=== PATIENT | female | born 1990 | race African-American/Black ===

== ENCOUNTER 2020-01-17 19:46 | Emergency (ER) | payer OTHER ==
[2020-01-17] MEDS ORDERED: diphenhydrAMINE INJ 50 MG/ML VIAL IVP STA (20:14)
[2020-01-17] MEDS ORDERED: SODIUM CHLORIDE 0.9% 1,000 ML IV STA (20:14)
[2020-01-17] MEDS ORDERED: METOCLOPRAMIDE 10 MG/2 ML VIAL IVP STA (20:14)
--- NOTE | 2020-01-17 20:15 | ED Physician Documentation ---
PD HPI HEADACHE - Stated complaint Stated Complaint: SON - Chief complaint Chief Complaint: Neuro - History obtained from History obtained from: Patient - History of Present Illness Timing - onset: Last night (29-year-old woman, G1 at 10 weeks gestation. She has a history of frequent migraines and was maintained on prophylactic amitriptyline for same until she became . This is her first migraine since she got . Started gradually last night and then got worse over the day today. It is a throbbing frontal headache not associated with nausea but she is light sensitive. It feels similar to prior headaches. There is no fever or neck stiffness.) Review of Systems Constitutional: denies: Fever, Chills Cardiac: reports: Reviewed and negative Respiratory: reports: Reviewed and negative PD PAST MEDICAL HISTORY - Past Medical History Past Medical History: Yes Neuro: Headaches, Migraines - Past Surgical History Past Surgical History: No - Present Medications Home Medications: Ambulatory Orders Medication Instructions Recorded Confirmed Metoclopramide [Reglan] 10 mg PO Q6H PRN #20 tablet 01/17/20 - Allergies Allergies/Adverse Reactions: Allergies Allergy/AdvReac Type Severity Reaction Status Date / Time No Known Drug Allergies Allergy Verified 01/17/20 19:51 - Social History Does the pt smoke?: No Smoking Status: Never smoker Does the pt drink ETOH?: No Does the pt have substance abuse?: No - Immunizations Immunizations are current?: Yes - POLST Patient has POLST: No PD ED PE NORMAL - Vitals Vital signs reviewed: Yes - General General: Alert and oriented X 3, No acute distress - HEENT HEENT: PERRL, EOMI - Neck Neck: Supple, no meningeal sign, No bony TTP - Abdomen Abdomen: Soft, Non tender - Female Female : Other (Bedside transabdominal ultrasound shows single live intrauterine with a heart rate of 170) - Back Back: No CVA TTP, No spinal TTP - Extremities Extremities: No edema, No calf tenderness / cord - Neuro Neuro: Alert and oriented X 3, Normal speech Results - Vitals Vitals: Vital Signs - 24 hr 01/17/20 19:51 Temperature 36.5 C Heart Rate 83 Respiratory 14 Rate Blood Pressure 119/73 O2 Saturation 98 Oxygen O2 Source Room air PD MEDICAL DECISION MAKING - ED course ED course: The headache is gradual in onset and similar to prior headaches. As such I doubt subarachnoid hemorrhage. There are no infectious symptoms such as fever or stiff neck to make me suspect meningitis. No carbon monoxide exposure by history. After the administration of IV Benadryl and Reglan she felt much better with headache that was minimal. Departure - Departure Disposition: 01 Home, Self Care Clinical Impression: Migraine headache Qualifiers: Migraine type: without aura Status migrainosus presence: with status migrainosus Intractability: not intractable Qualified Code(s): G43.001 - Migraine without aura, not intractable, with status migrainosus Condition: Good Record reviewed to determine appropriate education?: Yes Instructions: ED Headache Migraine Prescriptions: Metoclopramide [Reglan] 10 mg PO Q6H PRN #20 tablet PRN Reason: nausea or headache Comments: Call your doctor to arrange a follow-up appointment, make the next available appointment. In the interim, return anytime if worse or if new symptoms develop.
[2020-01-17 20:56] VITALS: BP 107/65
== END 2020-01-17 21:12 | disposition home or self-care (01) ==
LOC: ED 19:46
DX: O99.351 Diseases of the nervous system complicating pregnancy, first trimester (principal); G43.001 Migraine without aura, not intractable, with status migrainosus; Z3A.10 10 weeks gestation of pregnancy
CPT/HCPCS: 96361; 96374; 99283; 99284; J1200; J2765

== ENCOUNTER 2020-05-01 23:23 | Outpatient (CLI) | payer OTHER ==
[2020-05-01 23:40] VITALS: BP 130/67
[2020-05-02 00:07] LABS: BILIRUBIN,URINE NEGATIVE (NEGATIVE); CLARITY,URINE CLEAR (CLEAR); GLUCOSE, URINE (UA) NEGATIVE (NEGATIVE); KETONES,URINE (UA) NEGATIVE (NEGATIVE); LEUKOCYTE ESTERASE, URINE NEGATIVE (NEGATIVE); NITRITE,URINE NEGATIVE (NEGATIVE); OCCULT BLOOD,URINE NEGATIVE (NEGATIVE); PH,URINE 6.5 PH (5.0-7.5); PROTEIN,URINE NEGATIVE (NEGATIVE); UROBILINOGEN,URINE 0.2 (NORMAL) E.U./dL (NORMAL)
[2020-05-02 00:15] LABS: BACTERIA,URINE None Seen /HPF (None Seen); RBC,URINE None Seen /HPF (0-5); SQUAMOUS EPITHELIAL CELL,UR NONE SEEN (<= Few)
--- NOTE | 2020-05-02 00:27 | PROVIDER PROGRESS NOTE ---
- HPI Chief Complaint: Pain, non-labor Current : Current EDU 08/15/20 Gestation 24 Weeks and 6 Days 1 Para 0 Vital Signs Temperature 37.2 C 05/01/20 23:39 Heart Rate 101 H 05/01/20 23:39 Respiratory Rate 18 05/01/20 23:39 Blood Pressure 130/67 05/01/20 23:39 O2 Saturation 99 05/01/20 23:39 Temperature 37.2 C 05/01/20 23:39 Heart Rate 101 H 05/01/20 23:39 Respiratory Rate 18 05/01/20 23:39 Blood Pressure 130/67 05/01/20 23:39 O2 Saturation 99 05/01/20 23:39 - Plan Plan: S: Maribeth presents this evening with c/o strong ache to very low abdomen "I ca n't tell if it's my pelvis or just my low abdomen." She rates it as very strong, worsening since her prental appointment last week. She notes that the pain is worse when she is changing positions and is relieved when reclining. She denies otherwise intermittent/rhythmic nature. She did note some blood tinged discharge on wiping once today. She was encouraged to get a support belt in her a ppointment when she first described the discomfort. O: BP 130/67 HR 101 RR 18 SaO2: 99% Temp 37.2 Verbal and smiling when talking in bed, no acute distress FHTs appropriate for gestational age A: Round ligament vs symphysis pubis pain P: Discharge to home with information on labor s/s; as well as information about body mechanics and measures for relief Discussed option of physical therapy if pain persists
== END 2020-05-02 00:34 | disposition home or self-care (01) ==
LOC: WFO 23:23 → FBP 23:28 → WFO 05-02 00:34
PROVIDERS: ATTEND Advanced Practice Midwife
DX: O99.89 Other specified diseases and conditions complicating pregnancy, childbirth and the puerperium (principal); M79.18 Myalgia, other site; Z3A.24 24 weeks gestation of pregnancy
CPT/HCPCS: 81001; 87086; 99212

== ENCOUNTER 2020-05-03 22:11 | Outpatient (CLI) | payer OTHER ==
[2020-05-03 22:41] VITALS: BP 112/66
[2020-05-03 22:52] LABS: BILIRUBIN,URINE NEGATIVE (NEGATIVE); GLUCOSE, URINE (UA) NEGATIVE (NEGATIVE); KETONES,URINE (UA) NEGATIVE (NEGATIVE); LEUKOCYTE ESTERASE, URINE NEGATIVE (NEGATIVE); NITRITE,URINE NEGATIVE (NEGATIVE); OCCULT BLOOD,URINE NEGATIVE (NEGATIVE); PH,URINE 6.5 PH (5.0-7.5); PROTEIN,URINE NEGATIVE (NEGATIVE); UROBILINOGEN,URINE 0.2 (NORMAL) E.U./dL (NORMAL)
[2020-05-03 22:55] LABS: CLARITY,URINE CLEAR (CLEAR)
[2020-05-03 23:12] LABS: RUPTURE OF MEMBRANES PLUS NEGATIVE (NEGATIVE)
--- NOTE | 2020-05-04 08:01 | PROCEDURE REPORT ---
- HPI Diagnosis/Indication for NST: Other (Fluid leaking from vagina) Current EDU 08/15/20 Gestation 25 Weeks and 1 Days 1 Vital Signs Temperature 36.8 C 05/03/20 22:24 Heart Rate 89 05/03/20 22:24 Respiratory Rate 16 05/03/20 22:24 Blood Pressure 112/66 05/03/20 22:24 O2 Saturation 98 05/03/20 22:24 Temperature 36.8 C 05/03/20 22:24 Heart Rate 89 05/03/20 22:24 Respiratory Rate 16 05/03/20 22:24 Blood Pressure 112/66 05/03/20 22:24 O2 Saturation 98 05/03/20 22:24
--- NOTE | 2020-05-04 08:09 | PROVIDER PROGRESS NOTE ---
- HPI Chief Complaint: Leakage of vaginal fluid Current : Current EDU 08/15/20 Gestation 25 Weeks and 1 Days 1 Vital Signs Temperature 36.8 C 05/03/20 22:24 Heart Rate 89 05/03/20 22:24 Respiratory Rate 16 05/03/20 22:24 Blood Pressure 112/66 05/03/20 22:24 O2 Saturation 98 05/03/20 22:24 Temperature 36.8 C 05/03/20 22:24 Heart Rate 89 05/03/20 22:24 Respiratory Rate 16 05/03/20 22:24 Blood Pressure 112/66 05/03/20 22:24 O2 Saturation 98 05/03/20 22:24 - Plan Plan: 05/03/2020 at 2200 S: Maribeth presented to triage after experiencing moisture on her underwear after getting up to urinate. No further leaking. O: FHTs: 145-150 baseline with moderate variability, accels at least 10x10, no decels. No uterine contractions ROM+- neg UA- neg A: This 29yo at 25.1wks gestation presents with leaking fluid from vagina Not amniotic fluid. FHT reassuring P: Discharge to home with labor precautions
== END 2020-05-03 23:28 | disposition home or self-care (01) ==
LOC: WFO 22:11 → FBP 22:12 → WFO 23:28
PROVIDERS: ATTEND Advanced Practice Midwife
DX: O99.89 Other specified diseases and conditions complicating pregnancy, childbirth and the puerperium (principal); N89.8 Other specified noninflammatory disorders of vagina; Z3A.25 25 weeks gestation of pregnancy
CPT/HCPCS: 81001; 81003; 82731; 84112; 87086; 99213

== ENCOUNTER 2020-05-30 12:16 | Outpatient (CLI) | payer OTHER ==
[2020-05-30 12:44] LABS: HGB - HEMOGLOBIN 12.1 g/dL (12.0-16.0); MEAN CORPUSCULAR HEMOGLOBIN 29.1 pg (27.0-31.0); MEAN CORPUSCULAR HGB CONC 33.2 g/dL (32.0-36.0); MEAN CORPUSCULAR VOLUME 87.7 fL (81.0-99.0); MEAN PLATELET VOLUME 10.5 fL (7.9-10.8); RED BLOOD COUNT 4.16 10^6/uL (4.20-5.40); RED CELL DISTRIBUTION WIDTH 12.7 % (12.0-15.0)
[2020-05-30 12:59] LABS: ALBUMIN 3.2 g/dL (3.2-5.5); ALBUMIN/GLOBULIN RATIO 0.9 (1.0-2.2); BILIRUBIN,TOTAL 0.4 mg/dL (0.2-1.0); CALCIUM 9.1 mg/dL (8.5-10.3); CREATININE 0.7 mg/dL (0.4-1.0); TOTAL PROTEIN 6.9 g/dL (6.7-8.2); URIC ACID 4.7 mg/dL (2.6-7.2)
== END 2020-05-30 12:17 | disposition home or self-care (01) ==
LOC: LAB 12:16
PROVIDERS: ATTEND Nurse Practitioner Obstetrics & Gynecology
DX: G43.909 Migraine, unspecified, not intractable, without status migrainosus (principal)
CPT/HCPCS: 36415; 80053; 82570; 84156; 84550; 85027

== ENCOUNTER 2020-05-31 07:00 | Outpatient (CLI) | payer OTHER ==
[2020-05-31 18:56] LABS: CREATININE,URINE 92.4 mg/dL; PROTEIN/CREATININE RATIO,URINE 0.1 (<=0.2)
== END 2020-05-31 23:59 | disposition home or self-care (01) ==
LOC: LAB.R 07:00
PROVIDERS: ATTEND Nurse Practitioner Obstetrics & Gynecology
DX: G43.909 Migraine, unspecified, not intractable, without status migrainosus (principal)
CPT/HCPCS: 82570; 84156

== ENCOUNTER 2020-06-23 13:15 | Outpatient (CLI) | payer OTHER ==
[2020-06-23 13:28] VITALS: BP 117/70
--- NOTE | 2020-06-23 13:58 | PROCEDURE REPORT ---
- HPI Diagnosis/Indication for NST: Decreased movement Current EDU 08/15/20 Gestation 32 Weeks and 3 Days 1 Para 0 Vital Signs Temperature 36.6 C 06/23/20 13:27 Heart Rate 97 06/23/20 13:27 Respiratory Rate 16 06/23/20 13:27 Blood Pressure 117/70 06/23/20 13:27 O2 Saturation 98 06/23/20 13:27 Temperature 36.6 C 06/23/20 13:27 Heart Rate 97 06/23/20 13:27 Respiratory Rate 16 06/23/20 13:27 Blood Pressure 117/70 06/23/20 13:27 O2 Saturation 98 06/23/20 13:27 - NST Procedure NST Procedure Start Date 06/23/20 Start Time 13:22 Stop Time 13:50 Vibroacoustic Stimulation Used No Patient States Movement No: decreased - Results and Plan Plan: Maribeth presents today with decreased movement. She states she is feeling movements but they have been decreased throughout the day today. She denies VB, Lof, or contractions. She also reports intermittent mid-epigastric pain after eating. She has not tried anything for management. NST performed 06/23/2020 NST read 06/23/2020 NST reactive. FHR baseline 140s, moderate variability, + accels, no decels Advised small frequent meals and TUMS PRN. Has f/u appt Friday - keep appt or return sooner PRN. Reviewed kick counting and when to present. Pt released home with precautions. FINAL DIAGNOSIS Decreased movement - third trimester
== END 2020-06-23 14:05 | disposition home or self-care (01) ==
LOC: WFO 13:15 → FBP 13:17 → WFO 14:05
PROVIDERS: ATTEND Nurse Practitioner Obstetrics & Gynecology
DX: O36.8130 Decreased fetal movements, third trimester, not applicable or unspecified (principal); Z3A.32 32 weeks gestation of pregnancy
CPT/HCPCS: 59025

== ENCOUNTER 2020-06-28 12:04 | Outpatient (CLI) | payer OTHER ==
[2020-06-28 12:25] LABS: MEAN CORPUSCULAR HEMOGLOBIN 29.1 pg (27.0-31.0); MEAN CORPUSCULAR HGB CONC 34.1 g/dL (32.0-36.0); MEAN CORPUSCULAR VOLUME 85.4 fL (81.0-99.0); MEAN PLATELET VOLUME 10.6 fL (7.9-10.8); RED BLOOD COUNT 4.12 10^6/uL (4.20-5.40); RED CELL DISTRIBUTION WIDTH 12.3 % (12.0-15.0); WHITE BLOOD COUNT 7.6 x10^3/uL (4.8-10.8)
[2020-06-28 12:50] LABS: ALBUMIN 3.2 g/dL (3.2-5.5); ALBUMIN/GLOBULIN RATIO 0.8 (1.0-2.2); BILIRUBIN,TOTAL 0.4 mg/dL (0.2-1.0); CALCIUM 9.2 mg/dL (8.5-10.3); CREATININE 0.7 mg/dL (0.4-1.0); TOTAL PROTEIN 7.1 g/dL (6.7-8.2)
== END 2020-06-28 12:05 | disposition home or self-care (01) ==
LOC: LAB 12:04
PROVIDERS: ATTEND Nurse Practitioner Obstetrics & Gynecology
DX: G43.109 Migraine with aura, not intractable, without status migrainosus (principal)
CPT/HCPCS: 36415; 80053; 82570; 84156; 85027

== ENCOUNTER 2020-07-01 00:37 | Outpatient (CLI) | payer OTHER ==
[2020-07-01 01:04] VITALS: BP 113/73
[2020-07-01 01:50] LABS: BILIRUBIN,URINE NEGATIVE (NEGATIVE); GLUCOSE, URINE (UA) NEGATIVE (NEGATIVE); KETONES,URINE (UA) NEGATIVE (NEGATIVE); LEUKOCYTE ESTERASE, URINE NEGATIVE (NEGATIVE); NITRITE,URINE NEGATIVE (NEGATIVE); OCCULT BLOOD,URINE NEGATIVE (NEGATIVE); PROTEIN,URINE NEGATIVE (NEGATIVE); UROBILINOGEN,URINE 0.2 (NORMAL) E.U./dL (NORMAL)
[2020-07-01 01:51] LABS: CLARITY,URINE CLEAR (CLEAR)
[2020-07-01 01:59] LABS: BACTERIA,URINE None Seen /HPF (None Seen); RBC,URINE None Seen /HPF (0-5); SQUAMOUS EPITHELIAL CELL,UR RARE Squamous (<= Few)
--- NOTE | 2020-07-01 02:03 | PROCEDURE REPORT ---
- HPI Diagnosis/Indication for NST: Other (Abdominal pain) Current EDU 08/15/20 Gestation 33 Weeks and 4 Days 1 Para 0 Vital Signs Temperature 37.1 C 07/01/20 00:57 Heart Rate 101 H 07/01/20 00:57 Respiratory Rate 20 07/01/20 00:57 Blood Pressure 113/73 07/01/20 00:57 O2 Saturation 97 07/01/20 00:57 Temperature 37.1 C 07/01/20 01:00 Heart Rate 97 07/01/20 01:00 Respiratory Rate 18 07/01/20 01:00 Blood Pressure 113/73 07/01/20 01:00 O2 Saturation 97 07/01/20 01:00 - NST Procedure NST Procedure Start Time 13:22 Stop Time 13:50 - Results and Plan Findings/Impression: S: Maribeth is a 29yo at 33.4wks gestation who presents for new onset lower left abdominal pain. It started at 2000, and she felt it was possibly digestive discomfort. It was a constant aching. She took tums and miralax and went to sleep, and then was awoke at midnight by 10/10 pain. She then presented to L&D for evaluation. She currently reports her pain as improving at 5/10 She denies LOF/VB or sensation of contractions Endorses movement She reports having intercourse at 1700, and then leftover thanksgiving dinner after that No SON, RUQ pain, or blurred vision. O: Abdomen gravid, soft to palpation, mild tenderness noted with palpation to lower quadrant UA- collected and normal FFN- unable to collect r/t recent intercourse Affirm- collected, awaiting results Pt talkative for duration of evaluation without guarding or wincing noted FHTs 140s, moderate variability, accels 15x15, no decels Uterine irritability noted on toco A: 29yo at 33.4 wks gestation with LLQ abdominal pain No indications of early labor Discussed precautions for cholycystitis Discussed s/s preeclampsia, labor, and appendicitis FHT Cat I P: Discharge to home with labor precautions Return for routine care Will call if abnormal Affirm Return for worsening pain, or continued pain at 5/10 into tomorrow Refrain from intercourse until pain resides.
[2020-07-01 05:13] LABS: CANDIDA GROUP DNA NEGATIVE (NEGATIVE); CANDIDA KRUSEI DNA NEGATIVE (NEGATIVE); TRICHOMONAS VAGINALIS DNA NEGATIVE (NEGATIVE)
== END 2020-07-01 01:50 | disposition home or self-care (01) ==
LOC: WFO 00:37 → FBP 00:38 → WFO 01:50
PROVIDERS: ATTEND Advanced Practice Midwife
DX: O99.891 Other specified diseases and conditions complicating pregnancy (principal); Z3A.33 33 weeks gestation of pregnancy; R10.30 Lower abdominal pain, unspecified
CPT/HCPCS: 81001; 82731; 87086; 87661; 87801; 99213

== ENCOUNTER 2020-07-20 13:19 | Outpatient (CLI) | payer OTHER ==
--- NOTE | 2020-07-20 15:00 | Ultrasound Report ---
PROCEDURE: OB F/U or Repeat INDICATIONS: UTERINE SIZE/DATE DISCREPANCY OUTSIDE/PRIOR DATING DATA: Last menstrual period (LMP): 11/09/2019. LMP-based estimated date of delivery (ALVARADO): 08/15/2020. First dating scan (date and location): 04/28/2020. Estimated date of delivery (ALVARADO) from first dating scan: 08/12/2020. TECHNIQUE: Real-time scanning was performed of the fetus, with image documentation and biometric measurements. Endovaginal scanning: Not needed COMPARISON: None currently available FINDINGS: General: A single living intrauterine gestation is present. Presentation: Vertex Placenta: Placental position is right anterior, without previa. Amniotic fluid index: 18.2 cm, 76 percentile for gestational age. heart rate: 133 beats per minute. Maternal cervical canal: 3 cm long; normal length is 2.5 cm or more. biometrics: Biparietal diameter: 9.6 cm, 39 weeks 3 days Head circumference: 34.4 cm, 39 weeks 5 days Abdominal circumference: 34.7 cm, 38 weeks 4 days Femur length: 7.5 cm, 38 weeks 1 day Estimated gestational age from initial scan: 36 weeks 5 days. Composite gestational age from present scan: 39 weeks 0 days Estimated weight and percentile: 3578 g, at the 95th percentile. Measurement variability in biometric dating: +/- 10 days from 12-20 weeks gestation, +/- 2 weeks from 20-30 weeks gestation, +/- 3 weeks at 30 weeks gestation or more. Other: Not applicable. IMPRESSION: Current estimated gestational age from growth parameters today is 39 weeks 0 days +/- 3 weeks, and the prior estimated gestational age from 04/28/2020 is 36 weeks 5 days, +/- 3 weeks. [facility] estimated weight is on the threshold of macrosomia. No anomaly is seen. Reviewed by: Joseph Feliciano MD on 07/20/2020 2:59 PM PST Approved by: Joseph Feliciano MD on 07/20/2020 2:59 PM PST Station ID: [id number]
== END 2020-07-20 13:20 | disposition home or self-care (01) ==
LOC: DI 13:19
PROVIDERS: ATTEND Nurse Practitioner Obstetrics & Gynecology
DX: O26.843 Uterine size-date discrepancy, third trimester (principal); Z3A.39 39 weeks gestation of pregnancy

== ENCOUNTER 2020-07-26 08:00 | Outpatient (CLI) | payer OTHER | END 2020-07-26 23:59 | disposition home or self-care (01) | LOC: LAB.N 08:00 | PROVIDERS: ATTEND Advanced Practice Midwife | DX: Z34.90 Encounter for supervision of normal pregnancy, unspecified, unspecified trimester (principal); Z36.85 Encounter for antenatal screening for Streptococcus B | CPT/HCPCS: 87797 ==

== ENCOUNTER 2020-07-30 21:40 | Outpatient (CLI) | payer OTHER ==
[2020-07-30 22:13] VITALS: BP 112/69
[2020-07-30 23:19] LABS: RUPTURE OF MEMBRANES PLUS NEGATIVE (NEGATIVE)
--- NOTE | 2020-07-31 18:09 | PROVIDER PROGRESS NOTE ---
- HPI Chief Complaint: Leakage of vaginal fluid Current : Current EDU 08/15/20 Gestation 37 Weeks and 5 Days 1 Para 0 Vital Signs Temperature 36.9 C 07/30/20 21:56 Heart Rate 95 07/30/20 21:56 Respiratory Rate 07/30/20 21:56 Blood Pressure 112/69 07/30/20 21:56 O2 Saturation 98 07/30/20 21:56 Temperature 36.9 C 07/30/20 22:13 Heart Rate 95 07/30/20 22:13 Respiratory Rate 07/30/20 22:13 Blood Pressure 112/69 07/30/20 22:13 O2 Saturation 98 07/30/20 22:13 - Procedures OB Procedure Performed: NST NST Procedure: NST Procedure Start Time 13:22 Stop Time 13:50 - Plan Plan: S: Maribeth presented to L&D triage with complains of leaking fluid, eye pain, and blurred vision. O: FHT 150 baseline moderate variability Accels 15x15 no decels ROM+- negative BP wnl Irregular uterine activity A: 29yo at 37.5wks gestation presented for a term labor check Not ruptured Not in Labor NST- reactive No s/s preeclampsia P: Discharge home with labor precautions Continue with routine care Final Diagnosis: False Labor
== END 2020-07-30 23:30 | disposition home or self-care (01) ==
LOC: WFO 21:40 → FBP 21:41 → WFO 23:30
PROVIDERS: ATTEND Advanced Practice Midwife
DX: O99.891 Other specified diseases and conditions complicating pregnancy (principal); Z3A.37 37 weeks gestation of pregnancy; H57.10 Ocular pain, unspecified eye; H53.8 Other visual disturbances
CPT/HCPCS: 84112; 99213

== ENCOUNTER 2020-08-09 06:54 | Inpatient (IN) | payer OTHER ==
[2020-08-09] MEDS ORDERED: SODIUM CHLORIDE FLUSH 0.9% 10 ML SYRINGE IVP PRN (08:09)
[2020-08-09] MEDS ORDERED: ONDANSETRON 4 MG/2 ML VIAL IVP PRN (08:09)
[2020-08-09] MEDS ORDERED: OXYTOCIN/SODIUM CHLORIDE 500 ML IV PRN (08:09)
[2020-08-09] MEDS ORDERED: AMPICILLIN 2 GM in SODIUM CHLORIDE 0.9% MINIBAG 100 ML IV ONE (08:09)
[2020-08-09] MEDS ORDERED: CARBOPROST TROMETHAMINE 250 MCG/ML AMP IM PRN (08:09)
[2020-08-09] MEDS ORDERED: LIDOCAINE-MPF 1% 30 ML VIAL ID PRN (08:09)
[2020-08-09] MEDS ORDERED: OXYTOCIN 10 UNIT/ML VIAL IM PRN (08:09)
[2020-08-09] MEDS ORDERED: miSOPROStoL 200 MCG TABLET BC PRN (08:09)
[2020-08-09] MEDS ORDERED: TRANEXAMIC ACID 1,000 MG in SODIUM CHLORIDE 0.9% 100ML 100 ML IV PRN (08:09)
[2020-08-09] MEDS ORDERED: METHYLERGONOVINE 0.2 MG/ML VIAL IM PRN (08:09)
[2020-08-09] MEDS ORDERED: fentaNYL 100 MCG/2 ML VIAL IVP PRN (08:09)
--- NOTE | 2020-08-09 08:12 | HISTORY & PHYSICAL EXAMINATION ---
Admit History - Visit Reason Visit Reason: Other (Pre-Induction Cervical Ripening) - : 1 Parity: 0 Care: positive: [facility] [place] Risk/History: positive: Other (suspected LGA (efw 95%)) Complications This : positive: None Smoking Status: Never smoker - Mother's Labs Mother's Blood Type: positive: B Mother's RH: positive: Positive GBS: positive: Group B Strep Positive Rubella Status: positive: Immune - Other Maternal History Other Maternal History: -29yo at 39.0wks gestation who presents to Labor and Delivery for pre-induction cervical ripening -Reports movement -Denies ctx/VB/LOF - care with [facility] which has been adequate - Complications - US showing 95% efw -GBS positive -Dating Criteria * Initial U/S: 01/19/2020 @ 10.1wks c/w LMP dating- ALVARADO 08/15/2019 by LMP. -OB Hx *G1: current -Medications * vitamin-daily * Loratadine 10mg daily -Allergies *NKDA -Medical History *Non contributory -Surgical History *Corder teeth 2009 -Family History *MGM breast cancer -Social History *Non contributory - Labs, Immunizations, and Findings Initial U/S: 01/19/2020 @ 10.1wks c/w LMP dating- ALVARADO 08/15/2019 by LMP. B pos/Rubella immune VZV: NON-IMMUNE RPR nonreactive; HIV neg; GC/CT neg Genetic testing: Serum integrated screen - neg; CF neg FAS: 03/29/2020 WN with exception of suboptimal visualization of sacrum. Anterior placenta, no previa. 3VC. MITCHELL WNL. Size c/w dating. GROWTH: MITCHELL wnl. EFW 95%tile. Consider 39wk IOL. IOL for 08/09/2020 at 0730- confirmed with L&D. Glucola 127 Influenza: declined TDAP 05/30/2020 GBS at 37.1wks- neg HSV: denies in self and partner Breast pump Rx provided MOD: Anticipate ; Partner Mares; Its a BOY! Hira aguayo contraception: unsure - never used contraception in the past pap: 01/30/2020-WNL -SVE 1.5/60/-2 -Vertex by BSUS -EFW by lilli's 8.5# -FHTs per flowsheet -Assessment *29yo at 39.0 wks gestation who presents for IOL for suspected LGA baby *Cornejo Score 6- requires cervical ripening * Heart Tones- Category I -Plan *Admit to OBS(until active labor, SROM, AROM, epidural, or pitocin) *Cervical ripening with Misoprostol *Monitoring- Continuous *Covid swab per protocol *Comfort measures available- position changes, whirlpool tub, fentanyl, and epidural per maternal preference *Diet/Activity- per maternal preference *Anticipate Meds/Allgy - Home Medications Home Medications: Ambulatory Orders Medication Instructions Recorded Confirmed Metoclopramide [Reglan] 10 mg PO Q6H PRN #20 tablet 01/17/20 - Allergies Allergies/Adverse Reactions: Allergies Allergy/AdvReac Type Severity Reaction Status Date / Time No Known Drug Allergies Allergy Verified 01/17/20 19:51 Review of Systems - All Other Systems All Other Systems: reports: Reviewed and negative Physical - Abdominal Exam Contraction Frequency (min/apart): irregular Uterine Resting Tone: positive: Soft - Monitoring Heart Rate Baseline: 150 Strip Review: positive: Category I (moderate variability, accels 15x15, no decels) - Presentation Presentation: positive: Vertex - Vaginal Exam Membranes: positive: Membranes intact Plan for Labor - Plan For Labor I expect patient to be DC'd or transferred within 96 hours.: Yes
[2020-08-09] MEDS: miSOPROStoL 100 MCG TABLET BC SCH ×4 (08:33→23:09)
[2020-08-09 08:34] LABS: BASOPHILS % (AUTO) 0.2 %; EOSINOPHILS # (AUTO) 0.1 10^3/uL (0.0-0.7); EOSINOPHILS % (AUTO) 0.9 %; HGB - HEMOGLOBIN 11.4 g/dL (12.0-16.0); LYMPHOCYTES # (AUTO) 1.9 10^3/uL (1.5-3.5); LYMPHOCYTES % (AUTO) 28.6 %; MEAN CORPUSCULAR HEMOGLOBIN 28.7 pg (27.0-31.0); MEAN CORPUSCULAR HGB CONC 33.5 g/dL (32.0-36.0); MEAN CORPUSCULAR VOLUME 85.6 fL (81.0-99.0); MEAN PLATELET VOLUME 11.5 fL (7.9-10.8); MONOCYTES # (AUTO) 0.6 10^3/uL (0.0-1.0); MONOCYTES % (AUTO) 9.2 %; NEUTROPHILS % (AUTO) 59.6 %; PLT - PLATELET COUNT 186 10^3/uL (130-450); RED BLOOD COUNT 3.97 10^6/uL (4.20-5.40); WHITE BLOOD COUNT 6.7 x10^3/uL (4.8-10.8)
[2020-08-09 10:51] LABS: C. PNEUMONIAE- RESP PCR PANEL NOT DETECTED
[2020-08-09] MEDS: ACETAMINOPHEN 325 MG TABLET PO PRN (14:31)
[2020-08-09] MEDS ORDERED: diphenhydrAMINE 25 MG CAPSULE PO PRN (15:15)
[2020-08-09] MEDS ORDERED: ZOLPIDEM 5 MG TABLET PO PRN (15:16)
[2020-08-10] MEDS ORDERED: AMPICILLIN 2 GM in SODIUM CHLORIDE 0.9% MINIBAG 100 ML IV ONE (03:00)
[2020-08-10] MEDS: miSOPROStoL 100 MCG TABLET BC SCH ×2 (03:10→07:29)
[2020-08-10] MEDS: SODIUM CHLORIDE FLUSH 0.9% 10 ML SYRINGE IVP SCH (07:29)
[2020-08-10] MEDS: ACETAMINOPHEN 325 MG TABLET PO PRN ×2 (09:00→21:12)
--- NOTE | 2020-08-10 10:44 | PROVIDER PROGRESS NOTE ---
Labor Progress Note - Uterine Monitoring Uterine Monitoring Mode: positive: External toco Contraction Frequency (min/apart): 3-5 Contraction Intensity: positive: Mild to moderate Uterine Resting Tone: positive: Soft - Monitoring Monitor Mode: positive: External ultrasound Heart Rate Baseline: 145 Heart Rate Variability: positive: Moderate (6-25 bmp) Accelerations: positive: Present, 15x15 Decelerations: positive: None Strip Review: positive: Category I - Vaginal Exam Dilation (in cm): 2 Effacement (%): 70 Station: -2 Cervical Position: Anterior - Labor Progress Note Labor Progress Note/Additional Text: S: Maribeth is resting in bed. She reports feeling some of her contractions, but that they are mild. FOB is supportive at bedside. O: S/p Miso dose #6 at 0730 SVE: 2/70/-2/ant/soft with tight rim of external os Cook Balloon placed and inflated (uterine: 55mL; vamL) to patient tolerance A: 29yo at 39.1wks gestation IOL for suspected LGA Cornejo score 8- further ripening is indicated P: May monitor intermittently once 4 hours have passed from last miso dose Balloon ripening until spontaneously expelled or 12 hours have passed May eat/drink/ambulate to maternal preference May utilize comfort measures per maternal preference
--- NOTE | 2020-08-10 19:29 | PROVIDER PROGRESS NOTE ---
Labor Progress Note - Uterine Monitoring Uterine Monitoring Mode: positive: Palpation Contraction Frequency (min/apart): 3-6 Contraction Intensity: positive: Moderate Uterine Resting Tone: positive: Soft - Monitoring Monitor Mode: positive: Doppler/auscultation Heart Rate Baseline: 150s, accels audible, no audible decel - Labor Progress Note Labor Progress Note/Additional Text: S: Maribeth is ambulating in the room. supportive at bedside. Reports acceptance of discomfort with cervical balloon, and that she has tugged on it while up to the bathroom and it has not come out. O: FHTs via doppler Ctx per pt report and RN palpation A: 29yo at 39.1wks gestation IOL Balloon in place and appropriate until 2230 P: Intermittent monitoring Anticipate Comfort measures per maternal preference Will evaluate for pitocin administration and balloon removal PRN
[2020-08-10] MEDS: OXYTOCIN/SODIUM CHLORIDE 500 ML IV SCH (20:59)
[2020-08-10] MEDS: LACTATED RINGERS 1,000 ML IV SCH (21:02)
[2020-08-11] MEDS: AMPICILLIN 1 GM in SODIUM CHLORIDE 0.9% MINIBAG 100 ML IV SCH ×4 (01:14→21:01)
[2020-08-11] MEDS ORDERED: ROPIVACAINE 0.2% 0 MG/0 ML BAG EP ONE (03:23)
--- NOTE | 2020-08-11 09:32 | PROVIDER PROGRESS NOTE ---
Subjective - Subjective Subjective: Asked by CNM to become involved with assessing pt's induction of labor. Pt has a EFW >90%ile and normal amniotic fluid, is 39w and offered IOL for this and chose to do so. Has received 24h of misoprostol followed by cook catheter and pitocin as well. Internal os is unable to be reached. Patient is requesting consideration of discharge. Pt has had largely category 1 NST. Had some late decelerations last hs associated with a functional contraction pattern. Also had some lates associated with a period of tachysystole. Both resolved with position changes. Lilli reveals about a 8.75# fetus with copious amniotic fluid. SVE performed with hands under the SI joints and pt flat in bed. She had tissue at the internal side of the cervix that I was able to gently penetrate with a finger. Membranes swept with patient permission. SVE after sweep was 3/50/-3/posterior/ soft. d/w CNM, recommend continuation of IOL due to rare late decelerations. Cervix is ripe and further prostaglandin delivery likely with sweeping membranes. Recommend resume pitocin. Consider AROM earlier rather than later with the amount of amniotic fluid palpated on lilli. Anticipate . Objective - Vital Signs/Intake & Output Intake & Output: Intake & Output 08/08/20 08/09/20 08/10/20 08/11/20 23:59 23:59 23:59 23:59 Intake Total 800 500 Balance 800 500 - Lab Results Fish Bones: 08/09/20 08:27
[2020-08-11] MEDS: SODIUM CHLORIDE FLUSH 0.9% 10 ML SYRINGE IVP SCH ×2 (11:45→23:18)
[2020-08-11] MEDS: OXYTOCIN/SODIUM CHLORIDE 500 ML IV SCH ×3 (11:48→22:45)
[2020-08-11] MEDS: LACTATED RINGERS 1,000 ML IV SCH (11:49)
--- NOTE | 2020-08-11 16:26 | PROVIDER PROGRESS NOTE ---
Labor Progress Note - Uterine Monitoring Uterine Monitoring Mode: positive: External toco Contraction Frequency (min/apart): 2-4 Contraction Intensity: positive: Moderate Uterine Resting Tone: positive: Soft - Monitoring Monitor Mode: positive: External ultrasound Heart Rate Baseline: 145 Heart Rate Variability: positive: Moderate (6-25 bmp) Accelerations: positive: Present, 15x15 Decelerations: positive: None - Vaginal Exam Dilation (in cm): 4 Effacement (%): 60 Station: -3 Cervical Position: Midposition - Labor Progress Note Labor Progress Note/Additional Text: S: Ladailon in resting in bed. Reports that contractions have become more strong since pitocin was started. She is agreeable to AROM with SVE O: SVE 4/60/-3(head well applied)/soft/mid AROM for moderate clear fluid. Head remains well applied Pitocin running since approx 1200 A: 29yo at 39.2 wks IOL for suspected LGA Augementing with AROM and Pitocin P: Anticipate Comfort measures per maternal preference Continuous monitoring
[2020-08-11] MEDS ORDERED: ROPIVACAINE 0.2% 200 MG/100 ML BAG EP ONE (18:14)
[2020-08-11] MEDS ORDERED: NALBUPHINE 10 MG/ML AMP IVP PRN (18:44)
[2020-08-11] MEDS ORDERED: NALOXONE 0.4 MG/ML VIAL IVP PRN ×2 (18:44→20:52)
[2020-08-11] MEDS ORDERED: METOCLOPRAMIDE 10 MG/2 ML VIAL IVP PRN (18:44)
[2020-08-11] MEDS ORDERED: diphenhydrAMINE INJ 50 MG/ML VIAL IVP PRN ×2 (18:44→22:55)
[2020-08-11] MEDS ORDERED: ONDANSETRON 4 MG/2 ML VIAL IVP PRN (18:44)
--- NOTE | 2020-08-11 18:47 | ANESTHESIA ---
Pre-Anesthesia VS, & Labs - Diagnosis IUP, term labor - Procedure labor epidural placement Vital Signs: Temp Pulse Resp BP Pulse Ox 37.0 C 97 18 134/75 H 98 08/10/20 20:01 08/10/20 20:01 08/10/20 20:01 08/10/20 20:01 08/10/20 20:01 Height: 5 ft 7 in Weight (kg): 110.949 kg Body Mass Index: 38.2 BMI Classification: Obese - NPO Last Fluid Intake: t/o day Last Food Intake: t/o day - Is Patient ?: Yes - Lab Results Current Lab Results: Laboratory Tests 08/09/20 09:53: Blood Type B POSITIVE, Antibody Screen NEGATIVE 08/09/20 08:27: WBC 6.7, RBC 3.97 L, Hgb 11.4 L, Hct 34.0 L, MCV 85.6, MCH 28.7, MCHC 33.5, RDW 13.0, Plt Count 186, MPV 11.5 H, Neut # (Auto) 4.0, Lymph # (Auto) 1.9, Bea[place]gard # (Auto) 0.6, Eos # (Auto) 0.1, Baso # (Auto) 0.0, Absolute Nucleated RBC 0.00, Nucleated RBC % 0.0 08/09/20 08:23: Blood Type Recheck B POSITIVE Lab results reviewed: Yes Fish Bones: 08/09/20 08:27 Home Medications and Allergies Active Medications Acetaminophen (Acetaminophen 325 Mg Tablet) 650 mg PO Q6H PRN PRN Reason: Pain or Fever Last Admin: 08/10/20 21:12 Dose: 650 mg Documented by: Carboprost Tromethamine (Carboprost Tromethamine 250 Mcg/Ml Amp) 250 mcg IM Q15M PRN PRN Reason: Step 4: Hemorrhage protocol Stop: 08/14/20 08:10 Diphenhydramine HCl (Diphenhydramine 25 Mg Capsule) 25 mg PO QPM PRN PRN Reason: Insomnia Fentanyl (Fentanyl 100 Mcg/2 Ml Vial) 50 mcg IVP Q1H PRN PRN Reason: PAIN Oxytocin/Sodium Chloride (Pitocin/Sodium Chloride) 500 mls @ 999 mls/hr IV PRN PRN; Protocol PRN Reason: POST- HEMORR PREVENTION Stop: 08/14/20 08:10 Tranexamic Acid 1,000 mg/ (Sodium Chloride) 110 mls @ 660 mls/hr IV .ONCE PRN PRN Reason: EBL >1200mL and within 3hr Stop: 08/14/20 08:10 Ampicillin Sodium 1 gm/ Sodium (Chloride) 100 mls @ 200 mls/hr IV Q4H [facility] Last Admin: 08/11/20 17:06 Dose: 200 mls/hr Documented by: Lactated Ringer's (Lr) 1,000 mls @ 100 mls/hr IV .Q10H [facility] Last Admin: 08/11/20 11:49 Dose: 100 mls/hr Documented by: Oxytocin/Sodium Chloride (Pitocin/Sodium Chloride) 500 mls @ 2 mls/hr IV TITR [facility]; Protocol Last Titration: 08/11/20 14:35 Dose: 9 milliunit/min, 9 mls/hr Documented by: Lidocaine HCl (Lidocaine-Mpf 1% 30 Ml Vial) 30 ml ID .ONCE PRN PRN Reason: PERINEAL REPAIR Stop: 08/14/20 08:10 Methylergonovine Maleate (Methylergonovine 0.2 Mg/Ml Vial) 0.2 mg IM .ONCE PRN PRN Reason: Step 2: Hemorrhage protocol Stop: 08/14/20 08:10 Misoprostol (Misoprostol 200 Mcg Tablet) 800 mcg BC .ONCE PRN PRN Reason: Step 3: Hemorrhage protocol Stop: 08/14/20 08:10 Ondansetron HCl (Ondansetron 4 Mg/2 Ml Vial) 4 mg IVP Q4HR PRN PRN Reason: Nausea / Vomiting Oxytocin (Oxytocin 10 Unit/Ml Vial) 10 unit IM .ONCE PRN PRN Reason: Step one: If no IV access Stop: 08/14/20 08:10 Sodium Chloride (Sodium Chloride Flush 0.9% 10 Ml Syringe) 10 ml IVP 0100,0900,1700 [facility] Last Admin: 08/11/20 11:45 Dose: 10 ml Documented by: Sodium Chloride (Sodium Chloride Flush 0.9% 10 Ml Syringe) 10 ml IVP PRN PRN PRN Reason: NEEDED PER PROVIDER ORDERS Zolpidem Tartrate (Zolpidem 5 Mg Tablet) 5 mg PO QPM PRN PRN Reason: Insomnia Allergies/Adverse Reactions: Allergies Allergy/AdvReac Type Severity Reaction Status Date / Time No Known Drug Allergies Allergy Verified 01/17/20 19:51 Anes History & Medical History - Anesthetic History Anesthesia Complications: reports: No previous complications Family history of Anesthesia Complications: Denies Family history of Malignant Hyperthermia: Denies - Medical History Cardiovascular: reports: None Pulmonary: reports: None Gastrointestinal: reports: None Urinary: reports: None Neuro: reports: Headaches, Migraines Musculoskeletal: reports: None Blood Disorders: reports: None Skin: reports: None Smoking Status: Never smoker History of Cancer?: No - Surgical History Other Past Surgical History: wisdom teeth extraction - Obstetrical History : 1 Parity: 0 Events: positive: Other (suspected LGA (efw 95%)) Complications: positive: None Exam General: Alert, Oriented x3, Cooperative Dental: WNL Mouth Openin Fingerbreadth Neck Mobility: Normal Mallampati classification: II Thyromental Distance: 4-6 cm Respiratory: No respiratory distress Cardiovascular: Regular rate Mental/Cognitive Status: Normal for patient Cognitive Status: Within normal limits Plan Anesthesia Type: Epidural Consent for Procedure(s) Verified and Reviewed: Yes Code Status: Attempt Resuscitation ASA classification: 2-Mild systemic disease Is this case an emergency?: No
[2020-08-11] MEDS: ePHEDrine 50 MG/ML VIAL IVP PRN ×2 (20:01→20:15)
--- NOTE | 2020-08-11 20:51 | CONSULTATION NOTE ---
Consultation Report: Called by bedside RN d/t repeated need for ephedrine dose. When arrived BP 105/58. Assessed patient level to ~T5. Adjusted intermittent bolus to 8 mL/hr and postponed next dose for 1 hour. Discussed with patient and nurse.
[2020-08-11] MEDS ORDERED: ROPIVACAINE 0.2% 200 MG/100 ML BAG EP PRN (20:52)
--- NOTE | 2020-08-11 21:03 | PROVIDER PROGRESS NOTE ---
Labor Progress Note - Uterine Monitoring Uterine Monitoring Mode: positive: External toco Contraction Frequency (min/apart): 2-10 Contraction Intensity: positive: Moderate Uterine Resting Tone: positive: Soft - Monitoring Monitor Mode: positive: External ultrasound Heart Rate Baseline: 140 Heart Rate Variability: positive: Minimal (0-5 bpm), Moderate (6-25 bmp) Accelerations: positive: Present, 15x15 Decelerations: positive: Late, Recurrent (>50% x20 min) Strip Review: positive: Category II - Vaginal Exam Dilation (in cm): 5 Effacement (%): 90 Station: -2 Cervical Position: Anterior - Labor Progress Note Labor Progress Note/Additional Text: S: Maribeth was reporting feeling nauseas during her hypotensive episode. She is comfortable with her epidural and has no sensation or control of her legs. No sensation of contractions. O: Epidural placement around 1830 At approx [id number] started to develop subtle recurrent lates. RN encouraged to do position changes. Return to Cat I until 1929, when it is noted that pt's BP had severely dropped and recurrent and deepening lates are noted. Multiple position changes are utilized. At 1953 Provider to bedside to assist with intrauterine resuscitation. Ephedrine was utilized to attempt to recover from hypotension along with LR jennifer herman. At 2018 it is noted that variability, which had previously been moderate, became minimal Pitocin discontinued O2 via mask admin at 10L. Return to moderate variability, accels 15x15, no decels at 2035 [employer] to bedside A: 29yo at 39.2wks gestation Cat II strip, currently recovered Pitocin off Contractions now irregular P: Restart pitocin when Cat I for greater than 30mins Anticipate Epidural for pain management
[2020-08-11] MEDS ORDERED: CALCIUM CARBONATE CHEW 500 MG TABLET PO PRN ×2 (22:55→22:59)
[2020-08-12] MEDS: LACTATED RINGERS 1,000 ML IV SCH ×2 (01:05→07:07)
[2020-08-12] MEDS: AMPICILLIN 1 GM in SODIUM CHLORIDE 0.9% MINIBAG 100 ML IV SCH ×2 (01:05→05:45)
--- NOTE | 2020-08-12 02:33 | PROVIDER PROGRESS NOTE ---
Labor Progress Note - Uterine Monitoring Uterine Monitoring Mode: positive: IUPC (inserted at 2237) Contraction Frequency (min/apart): 2-3 Contraction Intensity: positive: Moderate Uterine Resting Tone: positive: Soft - Monitoring Monitor Mode: positive: External ultrasound Heart Rate Baseline: 145 Heart Rate Variability: positive: Moderate (6-25 bmp) Accelerations: positive: Present, 15x15 Decelerations: positive: Late, Intermittent (<50% x20 min) Strip Review: positive: Category I (with short period of Cat II around 0140) - Vaginal Exam Dilation (in cm): 5 Effacement (%): 60 Station: -1 Cervical Position: Anterior - Labor Progress Note Labor Progress Note/Additional Text: S: Ladailon is resting comfortably in bed. Epidural effective for pain management. O: SVE /-1/mod/ant fluid-clear IUPC Afebrile Urine output approx 20mL/hr since mack placement at 2030 urine appears concentrated Bilateral LE edema noted LR bolus 250mL running A: 29yo at 39.3wks gestation IOL for suspected LGA MVUs adequate since approx 0100 Cervical change- minimal, only change is with station urinary output- inadequate P: Urinary output- fluid bolus and reevaluate in an hour SCDs to BLE Once MVUs adequate for 4 hours will perform SVE and evaluate for arrest of labor Continuous monitoring Anticipate
[2020-08-12] MEDS: ACETAMINOPHEN 325 MG TABLET PO PRN ×2 (08:07→14:08)
[2020-08-12] MEDS ORDERED: HYDROCORTISONE 1% CREAM 28 GM TUBE PR PRN (10:45)
[2020-08-12] MEDS ORDERED: WITCH HAZEL/GLYCERIN 1 PAD TOP PRN (10:45)
--- NOTE | 2020-08-12 10:57 | DELIVERY NOTE ---
Delivery Note - Labor Labor: positive: Augmented by ARM, Augmented by oxytocin, Induced by ARM, Induced by oxytocin - Infant Delivery Method Infant Delivery Method: positive: Spontaneous vaginal delivery - Presentation Presentation: positive: Vertex, TOD - left occiput anterior - Nuchal Cord Nuchal Cord: positive: None - Anesthetic Anesthetic Type: - Amniotic Fluid Description Amniotic Fluid Description: positive: Clear - Episiotomy Type Episiotomy Type: positive: None - Laceration Laceration: positive: 1st degree, Perineal - Suture Suture Type: positive: Vicryl Suture Size: positive: 3-0 - Delivery Outcome Delivery Outcome: positive: Livebirth - : positive: Placed in direct skin contact with mother, Bulb syringe, [place] used [place] sex: positive: Male : 7 : 9 - Cord Cord: positive: 3 vessels - Placenta Placenta: positive: Intact, Spontaneous - Estimated Blood Loss Estimated Blood Loss (in cc): 300 - Post Delivery Events Post Delivery Events: positive: Shoulder dystocia - Delivery Comments (Free Text/Narrative) Delivery Comments (Free Text/Narrative): Note: Labor: This 29 year old, , presented on 08/09/2020 @39.0 wks gestation by 10.1 week Ultrasound, confirmed by LMP, presented for IOL related to suspected LGA. Cervix was 1.5/60/-2 and vertex by BSUS. FHR pattern demonstrated 150 baseline in a Category I pattern. Misoprostol x6, cervical balloon, and pitocin were utilized to induce and augment her labor. Epidural placed upon maternal request. AROM occurred @ 1607 on 08/11/2020 and amount and color of fluid were noted to be copius and clear. Periods of Cat II strip throughout labor that were responsive to intrauterine resuscitative measures. She progressed to c/c/+1 at 0816 : Normal of a 4470 gm male on 08/12/2020 @ 0955 following a 60 sec shoulder dystocia that was resolved with Delonte. Nuchal not present. The was placed on maternal abdomen, stimulated, dried and placed skin to skin. Apgars 7 at one minute and 9 at five minutes. The umbilical cord was allowed to stop pulsating at which time it was doubly clamped by CNM and cut by FOB. Pitocin administered via IV for hemostasis. Fundal massage and gentle cord traction applied for active third stage management. Cord blood was obtained. Placenta delivered spontaneously and intact at 1002. Three vessel cord. EBL 300 mL. Fourth Stage: Uterine fundus firm and without excessive bleeding. The perineum, vagina, and cervix were inspected and found to have sustained a first degree perineal laceration requiring repair, and a small superficial tear to the inner right labia minora that does not require repair. Perineum was repaired in standard fashion under sterile conditions with a 3-0 vicryl. Vaginal examination following repair was done. Tissues well approximated. initiated. Family bonding well. Both mother and baby are in stable condition.
[2020-08-12] MEDS: IBUPROFEN 600 MG TABLET PO SCH ×2 (11:29→17:44)
--- NOTE | 2020-08-12 12:34 | PROVIDER PROGRESS NOTE ---
Subjective - Prog Note Date Prog Note Date: 08/12/20 Prog Note Time: 12:25 - Subjective Pt reports feeling: Improved Subjective: Patient is two hours and baby is being transferred to a facility with higher level of care. Following discussion of hemodynamic instability and s/s of delayed bleeding, patient desires to be discharged to meet baby at facility of transfer after four hours . Discussed need to call or notify hospital staff for fever, bleeding > 1pad/hr, dizziness, or abnormal odor. Patient will need to ambulate with assistance, and urinate post epidural prior to discharge. Fundus is firm and bleeding is noted to be rubra and moderate. VZV IM prior to discharge Follow up with Midwifery at 1 and 6 wks Objective - Vital Signs/Intake & Output Intake & Output: Intake & Output 08/09/20 08/10/20 08/11/20 08/12/20 23:59 23:59 23:59 23:59 Intake Total 398 427 2526.700 703.333 Output Total 375 Balance 362 900 7521.700 328.333 - Lab Results Fish Bones: 08/09/20 08:27
--- NOTE | 2020-08-12 12:55 | DISCHARGE SUMMARY ---
Discharge Summary - [facility] History of Present Illness: Admit Date 08/09/2020 Discharge Date 08/12/2020 Diagnosis on Admission: 1. A 29yo at 39.0 week intrauterine 3. Suspected LGA Diagnosis on Discharge 1. A 29yo s/p spontaneous vaginal delivery on 08/12/2020 2. Normal recovery- acute phase 3. LGA baby at 9#14oz Brief History: Labor: This 29 year old, , presented on 08/09/2020 @39.0 wks gestation by 10.1 week Ultrasound, confirmed by LMP, presented for IOL related to suspected LGA. Cervix was 1.5/60/-2 and vertex by BSUS. FHR pattern demonstrated 150 base line in a Category I pattern. Misoprostol x6, cervical balloon, and pitocin were utilized to induce and augment her labor. Epidural placed upon maternal request. AROM occurred @ 1607 on 08/11/2020 and amount and color of fluid were noted to be copius and clear. Periods of Cat II strip throughout labor that were responsive to intrauterine resuscitative measures. She progressed to c/c/+1 at 0816 : Normal of a 4470 gm male infant on 08/12/2020 @ 0955 following a 60 sec shoulder dystocia that was resolved with Delonte. Nuchal not present. The was placed on maternal abdomen, stimulated, dried and placed skin to skin. Apgars 7 at one minute and 9 at five minutes. Cord blood was obtained. Placenta delivered spontaneously and intact at 1002. Three vessel cord. EBL 300 mL. Fourth Stage: Uterine fundus firm and without excessive bleeding. The perineum, vagina, and cervix were inspected and found to have sustained a first degree perineal laceration requiring repair, and a small superficial tear to the inner right labia minora that does not require repair. Perineum was repaired in standard fashion under sterile conditions with a 3-0 vicryl. She has been doing well in her course, however baby requires transfer to higher level of care and she wishes to be discharged at four hours . If she is ambulating and is urinating without difficulty and her l ochia is normal, she may be discharged at that time. Her pain is well controlled with oral medications. Rx for Tylenol, ibuprofen, and her varicella vaccination will be sent electronically to the pharmacy of her choosing. She intends to follow up with Midwifery at [facility] in 1, and 6 weeks for routine visit. She has been given precautions to call if she has any worsening fevers, chills, abdominal pain, increased bleeding or foul smelling vaginal lochia. - ALLERGIES Allergies/Adverse Reactions: Allergies Allergy/AdvReac Type Severity Reaction Status Date / Time No Known Drug Allergies Allergy Verified 01/17/20 19:51 - MEDICATIONS Home Medications: Ambulatory Orders Medication Instructions Recorded Confirmed Metoclopramide [Reglan] 10 mg PO Q6H PRN #20 tablet 01/17/20 - LABS Result Diagrams: 08/09/20 08:27
--- NOTE | 2020-08-12 12:56 | Discharge Plan ---
Discharge Plan Problem Reviewed?: Yes Disposition: Home, Self Care Condition: Good Shower Restrictions: No Driving Restrictions: No Additional Instructions or Follow Up instructions: Follow up with midwifery at one and six weeks No Smoking: If you smoke, Please STOP! Call for help. Follow-up with: Candace Beck ARNP [Provider Admit Priv/Credential] -
[2020-08-12 18:02] VITALS: BP 134/86
--- NOTE | 2020-08-12 18:06 | Labor Flowsheet ---
Labor Flowsheet Datetime Report Generated by CPN: 08/12/2020 18:06 Datetime: 08/12/2020 17:36 VITAL SIGNS NBP Sys/Nicolette/Mean (mmHg): 134 : 86 : 95 Pulse: 86 Datetime: 08/12/2020 12:40 SpO2 (%): 99 Datetime: 08/12/2020 12:30 PAIN Pain Scale: 0 Pain Presence: None/Denies Datetime: 08/12/2020 11:30 Pain Type: Cramping; Dull Pain Location: Abdomen Datetime: 08/12/2020 10:20 Pain Assessment Comments: Epidural turned off Datetime: 08/12/2020 10:04 Stage of : Recovery Datetime: 08/12/2020 10:00 LaborFlag: Labor Datetime: 08/12/2020 09:55 ASSESSMENT A Monitor Mode: External US FHR Baseline Rate : 110 Variability: Moderate 6-25 bpm Accelerations: None Decelerations: Prolonged Category: Category II Oxygen Method: Room Air Datetime: 08/12/2020 09:45 UTERINE ACTIVITY Monitor Mode: External Frequency (min): 2-3.5 Quality: Strong Pattern: Normal: <= 5 Contractions in 10 Minutes Resting Tone (Palpate): Relaxed Contraction Comments: Pushing Comments: Spotty FHR tracing while pushing; prolonged decel to 100s from Datetime: 08/12/2020 09:00 Anesthesia Level Check: T10- Umbilicus Datetime: 08/12/2020 08:40 I/O Interventions: Wilson Discontinued Patient Care Comments: 150ml UOP Datetime: 08/12/2020 08:30 Duration (sec): 50-90 Datetime: 08/12/2020 08:23 STAGE 2 Pushing: Coached on Pushing; No Urge to Push Pushing Position: Pushing with Contractions; Pushing Lithotomy Datetime: 08/12/2020 08:16 VAGINAL EXAM Dilatation (cm): 10.0 Effacement (%): 100 Station: 1 Exam by: Candace Beck, CNM, ANRP Datetime: 08/12/2020 08:15 COMMUNICATION Communication: Provider at Bedside Provider Notified (Name): Candace Beck CNM, CANARY BREEDER Datetime: 08/12/2020 08:07 Analgesics/Sedatives: Tylenol (mg) @ 650 Datetime: 08/12/2020 08:01 Temperature (C): 37.3 Datetime: 08/12/2020 08:00 Respirations: 18 Datetime: 08/12/2020 07:19 Monitor Interventions for FHR: Ultrasound Adjusted Datetime: 08/12/2020 07:17 Patient Position/Activity: Right Tilt; Semi-Fowlers Datetime: 08/12/2020 06:30 Pitocin Checklist: At Least 1 Acceleration of 15 bpm x 15 Seconds in 30 Minutes or Adequate Variabi lity; No More than 5 Uterine Contractions in 10 Minutes for any 20 Minute Interval; Uterus Palpates S oft between Contractions Datetime: 08/12/2020 06:18 Monitor Interventions for UA: Shelly Adjusted Pain Coping: Sleeping Datetime: 08/12/2020 05:34 Communication Comments: Provider OK with continuing external monitoring at this time. Will notify i f there are changes Datetime: 08/12/2020 05:00 Resting Tone IUP (mmHg): 40 Intensity IUP (mmHg): 85 [place] Units (mmHg): 195 Datetime: 08/12/2020 02:35 MEDICATIONS Pitocin (milliunits): Increased to @ 14 Datetime: 08/11/2020 22:36 Vaginal Exam Comments: same check Datetime: 08/11/2020 21:53 PATIENT CARE IV/Blood Work: IV Bolus Started Datetime: 08/11/2020 21:21 Nausea/Vomiting: Present Datetime: 08/11/2020 20:32 Oxygen Amount (LPM): 10 Datetime: 08/11/2020 20:16 Magnesium/Antihypertensives: Ephedrine IV (mg) @ 5 Datetime: 08/11/2020 20:14 Medication Comments: per CNM Datetime: 08/11/2020 19:45 Actions for Decelerations: Provider Notified Datetime: 08/11/2020 19:01 Provider Reviewed Strip: Yes Notification Reason: Status Update Datetime: 08/11/2020 18:29 Epidural Positioning: Side Lying Datetime: 08/11/2020 18:25 Epidural Procedure: Loading Dose Datetime: 08/11/2020 18:02 Anesthesia Comments: anesthesia here Datetime: 08/11/2020 17:44 ANESTHESIA Anesthesia Plans: Epidural Datetime: 08/11/2020 17:40 Membranes Ruptured Date/Time: 08/11/2020 16:07 Membranes Rupture Method: Artificial Amniotic Fluid Color: Clear Amniotic Fluid Amount: Small Amniotic Fluid Odor: Normal Vaginal Bleeding: Normal Show Datetime: 08/11/2020 17:22 Comfort Measures: Breathing/Relaxation; Coaching Datetime: 08/11/2020 16:07 Membrane Status: Ruptured Membrane Comments: Arom by H. Mchenry CNM Datetime: 08/11/2020 13:07 Antibiotics: Ampicillin IV 1 Gm Datetime: 08/11/2020 12:59 FHR Baseline Changes: No Baseline Change Datetime: 08/11/2020 11:36 Temperature Route: Oral Datetime: 08/11/2020 04:33 Pain Relief Measures: Comfort Measures Datetime: 08/11/2020 00:22 Strip Reviewed by: H.G. CNM Datetime: 08/10/2020 23:00 Hygiene: Shower Datetime: 08/10/2020 22:44 Cervix, Consistency: Soft Cervix, Position: Midposition Datetime: 08/10/2020 22:30 Cervical Ripening Agents: Wilson Balloon Datetime: 08/10/2020 21:20 Pain Goal: 3 Datetime: 08/10/2020 20:01 MATERNAL ASSESSMENT Level of Consciousness: Alert DTR's/Clonus: DTRs 2+ Headache: Generalized RUQ Epigastric Pain: Denies Datetime: 08/10/2020 19:15 Nurse Giving Report: Gisele RN Nurse Receiving Report: Hillary RNC Datetime: 08/10/2020 06:43 Vital Sign Comments: Pt sleepin well all previous vitals WNL Datetime: 08/09/2020 19:39 Breath Sounds, Left: Clear and Equal Breath Sounds, Right: Clear and Equal
== END 2020-08-12 17:55 | disposition home or self-care (01) | DRG 807 ==
LOC: WFO 06:54 → FBP 06:58 → WFO 08:08 → FBP 08:09 → UNDOADMOB 08:09 → OBSVTOIN 08-11 12:13
PROVIDERS: ADMIT Advanced Practice Midwife; ATTEND Advanced Practice Midwife
PROC: 10907ZC Drainage of Amniotic Fluid, Therapeutic from Products of Conception, Via Natural or Artificial Opening (ICD-10-PCS; 2020-08-11)
PROC: 0HQ9XZZ Repair Perineum Skin, External Approach (ICD-10-PCS; principal; 2020-08-12)
PROC: 10E0XZZ Delivery of Products of Conception, External Approach (ICD-10-PCS; 2020-08-12)
DX: O36.63X0 Maternal care for excessive fetal growth, third trimester, not applicable or unspecified (principal); Z37.0 Single live birth; O66.0 Obstructed labor due to shoulder dystocia; O70.0 First degree perineal laceration during delivery; Z3A.39 39 weeks gestation of pregnancy
CPT/HCPCS: 0202U; 51703; 85025; 86850; 86900; 86901; 96365; 96366; 96368; 96375; A9270; G0378; J1200; J7120